=== PATIENT | male | born 1935 | race Caucasian/White ===

== ENCOUNTER 2018-10-21 20:24 | Emergency (ER) | payer MEDICARE, BC ==
--- NOTE | 2018-10-21 22:38 | ED ---
Adult Trauma - HPI Summary HPI Summary: Patient is an 83 y old M presenting to [facility] with chief complaint of hip pain with onset of a few hours ago (1800 per triage) and no LOC. Patient reports to have been grilling chicken and fell onto hip but not onto his head. Patient reports shoulder, hip, and hand pain. Patient reports to have had a hip replaced last fall and prefers Dr. Thee Feliciano, orthopedic surgeon, at [facility]. Patient denies head or neck pain, syncope, breathing problems, chest discomfort, dizziness, or vomiting post fall. Patient reports to have taken 1 Tramadol which helped with his discomfort. Aggravating factors include bending over and bearing weight, and alleviating factors include the Tramadol taken earlier. Patient reports to have a baseline edema in his lower extremities since his hip replacement. Patient reports to have a slight abrasion on his left leg from fall. - History of Current Complaint Chief Complaint: EDHipPelvisInjury Stated Complaint: HIT IS LT HIP AND LT SHOULDER PER Time Seen by Provider: 10/21/18 22:12 Hx Obtained From: Patient, Family/Litigator - Mechanism of Injury: Fall Loss of Consciousness: no loss of consciousness Impact: Rear Restraints: None Onset/Duration: Started Hours Ago Pain Intensity: 6 Pain Scale Used: 0-10 Numeric Location: Other - Hip Aggravating Factor(s): Movement - Bending Over, Weight Bearing Alleviating Factor(s): Other - Took 1 Tramadol Associated Signs & Symptoms: Negative: Nausea/Vomiting, Loss of Consciousness, Memory Loss, Significant Blood Loss - Allergy/Home Medications Allergies/Adverse Reactions: Allergies Allergy/AdvReac Type Severity Reaction Status Date / Time amoxicillin [From Augmentin] Allergy Unknown Verified 10/21/18 20:31 Reaction Details clavulanic acid Allergy Unknown Verified 10/21/18 20:31 [From Augmentin] Reaction Details NSAIDS (Non-Steroidal Allergy Unknown Verified 10/21/18 20:31 Anti-Inflamma Reaction Details Home Medications: Home Medications Irbesartan/Hydrochlorothiazide [Irbesartan/Hydrochlorothi 150-12.5 mg] 1 tab PO 10/21/18 [History] amLODIPine TAB* [Norvasc 5 mg TAB*] 5 mg PO DAILY 10/21/18 [History Confirmed ] traMADol TAB* [Ultram*] 50 mg PO Q6HR PRN 10/21/18 [History Confirmed 10/21/18] PMH/Surg Hx/FS Hx/Imm Hx Previously Healthy: No Endocrine/Hematology History: Denies: Hx Diabetes Cardiovascular History: Reports: Hx Hypertension, Other Cardiovascular Problems/ Disorders - right bundle branch block EENT History: Reports: Other - salivary gland issue - Surgical History Surgical History: Yes Surgery Procedure, Year, and Place: Rt hip replacement, hemorrhoids, appendectomy Infectious Disease History: No Infectious Disease History: Denies: Traveled Outside the [place] in Last 30 Days - Family History Known Family History: Positive: Other Family History: Father had macular degeneration and disease that is " insuffiency of the heart and doesn't pump correctly" - Social History Alcohol Use: Daily - "Glass of wine a day" Substance Use Type: Reports: None Smoking Status (MU): Never Smoked Tobacco Review of Systems Negative: Chest Pain Negative: Shortness Of Breath Negative: Syncope All Other Systems Reviewed And Are Negative: Yes Physical Exam - Summary Physical Exam Summary: Constitutional: Well-developed, Well-nourished, Alert. (-) Distressed Skin: Warm, Dry HENT: Normocephalic; Atraumatic Eyes: Conjunctiva normal Neck: Musculoskeletal ROM normal neck. (-) JVD, (-) Stridor, (-) Tracheal deviation Cardio: Rhythm regular, rate normal, Heart sounds normal; Intact distal pulses; The pedal pulses are 2+ and symmetric. Radial pulses are 2+ and symmetric. (-) Murmur Pulmonary/Chest wall: Effort normal. (-) Respiratory distress, (-) Wheezes, (-) Rales Abd: Soft, (-) tenderness, (-) Distension, (-) Guarding, (-) Rebound Musculoskeletal: Swelling and tenderness upon palpation of left posterior hip, no ecchymosis, mild pain with ROM of both hips, neurovascular intact distally, tenderness in superior scalpula on left, mild pain of upon ROM of left shoulder Lymph: (-) Cervical adenopathy Neuro: Alert, Oriented x3 Psych: Mood and affect Normal Triage Information Reviewed: Yes Vital Signs On Initial Exam: Initial Vitals Temp Pulse Resp BP Pulse Ox 99.2 F 97 16 161/99 95 10/21/18 20:25 10/21/18 20:25 10/21/18 20:25 10/21/18 20:25 10/21/18 20:25 Vital Signs Reviewed: Yes Diagnostics - Vital Signs Vital Signs Temp Pulse Resp BP Pulse Ox 10/21/18 20:25 99.2 F 97 16 161/99 95 - Laboratory Lab Statement: Any lab studies that have been ordered have been reviewed, and results considered in the medical decision making process. - Radiology Shoulder X-Ray Radiology Interpretation Completed By: ED Physician Summary of Radiographic Findings: No evidence of fracture. ED physician has reviewed this report. Hip/Pelvis X-Ray Radiology Interpretation Completed By: ED Physician Summary of Radiographic Findings: No evidence of fracture. ED physician has reviewed this report. Re-Evaluation - Re-Evaluation First Eval Re-Evaluation Time: 01:20 Comment: I discussed results and discharge with the patient. Adult Trauma Course/Dx - Course Course Of Treatment: Patient is an 83 y old M presenting to [facility] with chief complaint of hip pain with onset of a few hours ago (1800 per triage) and no LOC. Patient reports shoulder, hip, and hand pain. Patient denies head or neck pain, syncope, breathing problems, chest discomfort, dizziness, or vomiting post fall. Patient reports to have taken 1 tramadol which helped with his discomfort. Physical Exam reveals findings that include swelling and tenderness upon palpation of left posterior hip, no ecchymosis, mild pain with ROM of both hips, neurovascular intact distally,tenderness in superior scalpula on left, and mild pain of upon ROM of left shoulder. L Shoulder and L Hip/Pelvis XR reveal no evidence of fracture. Medications administered include Tramadol Hcl 50 mg. He is able to ambulate, so he is cleared for discharge home. He is diagnosed with hip contusion and shoulder strain. He agrees with plan for discharge with follow up with orthopedic surgeon. - Diagnoses Provider Diagnoses: Contusion, hip, Shoulder strain Discharge - Sign-Out/Discharge Documenting (check all that apply): Patient Departure - Patient will be discharged home. Patient Received Moderate/Deep Sedation with Procedure: No - Discharge Plan Condition: Stable Disposition: HOME Patient Education Materials: Shoulder Sprain (ED), Hip Contusion (ED) Print Language: TRINIDADIAN Referrals: [facility] [Outside] Additional Instructions: Follow-up with your orthopedic surgeon. - Billing Disposition and Condition Condition: STABLE Disposition: Home - Attestation Statements Document Initiated by Scribe: Yes Documenting Scribe: Genevieve Holland Provider For Whom Scribe is Documenting (Include Credential): Enriqueta Soria MD Scribe Attestation: I, Genevieve Holland, scribed for Enriqueta Crabtree MD on 10/22/18 at 0931. Scribe Documentation Reviewed: Yes Provider Attestation: The documentation as recorded by the [email or web address], Genevieve Holland accurately reflects the service I personally performed and the decisions made by me, Enriqueta Crabtree MD Status of Scribe Document: Viewed
[2018-10-22] MEDS ORDERED: traMADol TAB* 50 MG PO ONE (01:19)
[2018-10-22 02:00] VITALS: BP 158/92
== END 2018-10-22 01:21 | disposition home or self-care (01) ==
LOC: ED 20:24
DX: S70.02XA Contusion of left hip, initial encounter (principal); S46.912A Strain of unspecified muscle, fascia and tendon at shoulder and upper arm level, left arm, initial encounter; W19.XXXA Unspecified fall, initial encounter; Y93.G2 Activity, grilling and smoking food; Y92.9 Unspecified place or not applicable; I10 Essential (primary) hypertension; Z96.641 Presence of right artificial hip joint; Z88.6 Allergy status to analgesic agent; Z88.1 Allergy status to other antibiotic agents; Z88.0 Allergy status to penicillin
CPT/HCPCS: 99283; A9270-GY